=== PATIENT | female | born 1980 | race Asian ===

== ENCOUNTER 2017-12-27 19:40 | Emergency (ER) | payer SELFPAY ==
[2017-12-27 20:29] VITALS: TEMP 97.7; BMI 19.3
[2017-12-27] MEDS ORDERED: PANTOPRAZOLE 40 MG TABLET (FP) PO ONE (21:02)
--- NOTE | 2017-12-27 21:03 | PDOC ---
History of Present Illness - General History Source: Patient Exam Limitations: No Limitations - History of Present Illness Initial Comments: 12/27/17 21:36 The patient is a 37-year-old female, with no significant past medical history, who presents t to the ED with sudden onset of generalized dizziness, weakness, and shortness of breath. The patient states that she was experiencing what she describes as spasms to her hands and feet on the bus today. She was seen at an urgent care and subsequently started to vomit. The patient was sent to the ED for further evaluation. Last menstrual period was last month; it is pending this month. On exam, patient reports having a sour feeling in her epigastric region. The patient denies any fever, chills, nausea, vomiting, diarrhea, or abdominal pain. Denies any chest pain. Allergies: NKA Social History: Denies drug or alcohol use. <Karen Melton - Last Filed: 12/27/17 21:35> - General History Source: Patient <Rodger Niño - Last Filed: 12/27/17 22:47> - General Chief Complaint: Nausea/Vomiting Stated Complaint: VOMITING/NAUSEA Time Seen by Provider: 12/27/17 20:54 Past History <Karen Melton - Last Filed: 12/27/17 21:35> - Suicide/Smoking/Psychosocial Hx Smoking History: Never smoked Have you smoked in the past 12 months: No Information on smoking cessation initiated: No Hx Alcohol Use: No Drug/Substance Use Hx: No <Rodger Niño - Last Filed: 12/27/17 22:47> - Past Medical History Allergies/Adverse Reactions: Allergies Allergy/AdvReac Type Severity Reaction Status Date / Time No Known Allergies Allergy Verified 12/27/17 20:29 Home Medications: Ambulatory Orders NK [No Known Home Medication] 12/27/17 Review of Systems - Review of Systems Able to Perform ROS?: Yes Comments:: 12/27/17 21:36 CONSTITUTIONAL: Present: (+)generalized weakness Absent: fever, chills, diaphoresis, malaise, loss of appetite HEENT: Absent: rhinorrhea, nasal congestion, throat pain, throat swelling, difficulty swallowing, mouth swelling, ear pain, eye pain, visual Changes CARDIOVASCULAR: Absent: chest pain, syncope, palpitations, irregular heart rate, lightheadedness , peripheral edema RESPIRATORY: Present: (+)Shortness of breath Absent: cough, dyspnea with exertion, orthopnea, wheezing, stridor, hemoptysis GASTROINTESTINAL: Absent: abdominal pain, abdominal distension, nausea, vomiting, diarrhea, constipation, melena, hematochezia GENITOURINARY: Absent: dysuria, frequency, urgency, hesitancy, hematuria, flank pain, genital pain MUSCULOSKELETAL: Absent: myalgia, arthralgia, joint swelling SKIN: Absent: rash, itching, pallor HEMATOLOGIC/IMMUNOLOGIC: Absent: easy bleeding, easy bruising, lymphadenopathy, frequent infections ENDOCRINE: Absent: unexplained weight gain, unexplained weight loss, heat intolerance, cold intolerance NEUROLOGIC: Present: (+)Dizziness Absent: headache, focal weakness or paresthesias, unsteady gait, seizure, mental status changes, bladder or bowel incontinence PSYCHIATRIC: Absent: anxiety, depression, suicidal or homicidal ideation, hallucinations. <Karen Melton - Last Filed: 12/27/17 21:35> *Physical Exam - Vital Signs Last Vital Signs Temp Pulse Resp BP Pulse Ox 97.7 F 73 19 100/63 100 12/27/17 20:26 12/27/17 20:26 12/27/17 20:26 12/27/17 20:26 12/27/17 20:26 - Physical Exam Comments: 12/27/17 21:38 GENERAL: (+)Anxious-appearing. Well developed, well nourished. Awake and alert. HEENT: Normocephalic, atraumatic. PERRLA, EOMI. No conjunctival pallor. Sclera are non- icteric. Moist mucous membranes. Oropharynx is clear. NECK: Supple. Full ROM. No JVD. Carotid pulses 2+ and symmetric, without bruits. No thyromegaly. No lymphadenopathy. CARDIOVASCULAR: Regular rate and rhythm. No murmurs, rubs, or gallops. Distal pulses are 2+ and symmetric. PULMONARY: No evidence of respiratory distress. Lungs clear to auscultation bilaterally. No wheezing, rales or rhonchi. ABDOMINAL: Soft. Non-tender. Non-distended. No rebound or guarding. No organomegaly. Normoactive bowel sounds. MUSCULOSKELETAL Normal range of motion at all joints. No bony deformities or tenderness. No CVA tenderness. EXTREMITIES: No cyanosis. No clubbing. No edema. No calf tenderness. SKIN: Warm and dry. Normal capillary refill. No rashes. No jaundice. NEUROLOGICAL: Alert, awake, appropriate. PSYCHIATRIC: Cooperative. Good eye contact. Appropriate mood and affect. <Karen Melton - Last Filed: 12/27/17 21:35> - Vital Signs Last Vital Signs Temp Pulse Resp BP Pulse Ox 97.7 F 73 19 100/63 100 12/27/17 20:26 12/27/17 20:26 12/27/17 20:26 12/27/17 20:26 12/27/17 20:26 <Rodger Niño - Last Filed: 12/27/17 22:47> ED Treatment Course - LABORATORY CBC & Chemistry Diagram: 12/27/17 21:11 12/27/17 21:11 <Rodger Niño - Last Filed: 12/27/17 22:47> Medical Decision Making - Medical Decision Making 12/27/17 22:47 Dr. Niño: The scribe's documentation has been prepared under my direction and personally reviewed by me in its entirery. I confirm that the note above accurately reflects all work, treatment, procedures, and medical decision making performed by me. <Rodger Niño - Last Filed: 12/27/17 22:47> *DC/Admit/Observation/Transfer - Attestations Scribe Attestion: 12/27/17 21:39 Documentation prepared by Karen Melton, acting as back office medical assistant for Rodger Niño MD. <Karen Melton - Last Filed: 12/27/17 21:35> - Discharge Dispostion Admit: No <Rodger Niño - Last Filed: 12/27/17 22:47> Diagnosis at time of Disposition: Nausea & vomiting - Discharge Dispostion Disposition: HOME Condition at time of disposition: Stable - Patient Instructions Printed Discharge Instructions: DI for Nausea -- Adult, DI for Vomiting -- Adult Additional Instructions: Please follow up with your primary care doctor as needed. return if any problems
[2017-12-27 21:37] LABS: BASO % 0.3 % (0-2.0); EOS % 0.2 % (0-4.5); HEMATOCRIT 37.3 % (32.4-45.2); HEMOGLOBIN 12.7 GM/dL (10.7-15.3); LYMPH % 9.4 % (8-40); MCH 30.1 pg (25.7-33.7); MCHC 34.2 g/dl (32.0-36.0); MEAN CELL VOLUME 88.2 fl (80-96); MEAN PLT VOLUME 7.8 fl (7.5-11.1); MONO % 5.5 % (3.8-10.2); NEUT % 84.6 % (42.8-82.8); PLATELET COUNT 266 K/MM3 (134-434); RBC 4.22 M/mm3 (3.60-5.2); RDW 13.2 % (11.6-15.6); WHITE BLOOD COUNT 14.4 K/mm3 (4.0-10.0)
[2017-12-27 21:39] LABS: URINE APPEARANCE CLEAR; URINE BILIRUBIN NEGATIVE (<2.0 mg/dL); URINE BLOOD 1+ (NEGATIVE); URINE COLOR LTYELLOW; URINE GLUCOSE (UA) NEGATIVE (NEGATIVE); URINE KETONE NEGATIVE (NEGATIVE); URINE LEUK ESTERASE NEGATIVE (NEGATIVE); URINE NITRITE NEGATIVE (NEGATIVE); URINE PROTEIN NEGATIVE (NEGATIVE); URINE UROBILINOGEN NEGATIVE mg/dL (0.2-1.0)
[2017-12-27 21:41] LABS: EPI CELLS RARE /HPF (FEW); URINE HYALINE CAST 1 /lpf; URINE MUCUS RARE
[2017-12-27 21:47] LABS: INR 0.99 (0.82-1.09); PROTHROMBIN TIME (PATIENT) 11.2 SEC (9.98-11.88)
[2017-12-27 22:19] LABS: ANION GAP 5 (8-16); BLOOD UREA NITROGEN 13 mg/dL (7-18); CALCIUM 8.8 mg/dL (8.5-10.1); CHLORIDE 108 mmol/L (98-107); CO2 27 mmol/L (21-32); GLUCOSE,RANDOM 87 mg/dL (74-106); SODIUM 140 mmol/L (136-145)
[2017-12-27 22:24] LABS: ALK PHOS 62 U/L (45-117); BILIRUBIN,TOTAL 0.2 mg/dL (0.2-1.0); CREATININE 0.5 mg/dL (0.55-1.02); SGOT/AST 16 U/L (15-37); SGPT/ALT 17 U/L (12-78); TOT PROT 8.1 g/dl (6.4-8.2)
[2017-12-27] MEDS ORDERED: PANTOPRAZOLE 40 MG TABLET (FP) ONE (22:58)
[2017-12-27 23:20] VITALS: BP 106/63; PULSE 70
== END 2017-12-27 22:50 | disposition home or self-care (01) ==
LOC: JER 19:40
DX: R11.2 Nausea with vomiting, unspecified (principal); R29.0 Tetany
CPT/HCPCS: 36415; 80053; 81003; 81015; 82550; 84484; 84703; 85025; 85379; 85610; 99283-25